=== PATIENT | female | born 1990 | race Caucasian/White ===

== ENCOUNTER 2019-07-19 11:44 | Emergency (ER) | payer OTHER ==
[~2019-07-19] VITALS: Ht 162.6 cm; Wt 59.0 kg
[2019-07-19] MEDS ORDERED: PRENATABS RX T1 EACH (12:26)
== END 2019-07-19 18:05 | disposition home or self-care (01) ==
LOC: ER 11:44
DX: R42 Dizziness and giddiness (principal)

== ENCOUNTER 2019-10-12 04:28 | Inpatient (IN) | payer OTHER ==
[~2019-10-12] VITALS: Ht 160 cm; Wt 68.0 kg
[~2019-10-12 04:28] MED LIST: PRENATABS RX T1 EACH
[2019-10-15] MEDS ORDERED: NIFEDIPINE10 MG PO (06:46)
== END 2019-10-15 09:05 | disposition home or self-care (01) | DRG 833 ==
LOC: OBS/DEL 04:28 → LDR 11:24 → OB/GYN 10-13 14:28
PROVIDERS: ADMIT Obstetrics & Gynecology
PROC: 4A1HXFZ Monitoring of Products of Conception, Cardiac Rhythm, External Approach (ICD-10-PCS; principal; 2019-10-12)
PROC: BY4FZZZ Ultrasonography of Third Trimester, Single Fetus (ICD-10-PCS; 2019-10-12)
DX: O47.03 False labor before 37 completed weeks of gestation, third trimester (principal); Z3A.29 29 weeks gestation of pregnancy

== ENCOUNTER 2019-12-20 22:39 | Inpatient (IN) | payer OTHER ==
[~2019-12-20] VITALS: Ht 160 cm; Wt 73.9 kg
[~2019-12-20 22:39] MED LIST changes: +NIFEDIPINE10 MG PO
== END 2019-12-23 10:09 | disposition home or self-care (01) | DRG 807 ==
LOC: LDR 22:39 → OB/GYN 12-21 05:57
PROVIDERS: ADMIT Obstetrics & Gynecology
PROC: 3E033VJ Introduction of Other Hormone into Peripheral Vein, Percutaneous Approach (ICD-10-PCS; 2019-12-20)
PROC: 4A1HXCZ Monitoring of Products of Conception, Cardiac Rate, External Approach (ICD-10-PCS; 2019-12-20)
PROC: 10E0XZZ Delivery of Products of Conception, External Approach (ICD-10-PCS; principal; 2019-12-21)
PROC: 0HQ9XZZ Repair Perineum Skin, External Approach (ICD-10-PCS; 2019-12-21)
DX: O70.0 First degree perineal laceration during delivery (principal); Z37.0 Single live birth; Z3A.39 39 weeks gestation of pregnancy